=== PATIENT | female | born 1990 | race Caucasian/White ===

== ENCOUNTER 2022-03-18 15:00 | Outpatient (RCR) | payer MEDICAID, SELFPAY | END 2022-05-29 10:34 | disposition home or self-care (01) | PROVIDERS: PCP Obstetrics & Gynecology; Visit Provider Obstetrics & Gynecology | DX: R10.2 Pelvic and perineal pain (principal); R10.30 Lower abdominal pain, unspecified; R27.8 Other lack of coordination; Z51.89 Encounter for other specified aftercare | CPT/HCPCS: 97110; 97112; 97140; 97161 ==

== ENCOUNTER 2023-01-12 12:48 | Outpatient (CLI) | payer OTHER, MEDICAID, SELFPAY ==
--- NOTE | 2023-01-12 13:00 | CRLHL7_ITS ---
For Patients: As a result of the Century Cures Act, medical imaging exams and procedure reports are released immediately into your electronic medical record. You may view this report before your referring provider. If you have questions, please contact your health care provider. INDICATION: Bleeding/spotting COMPARISON: None. TECHNIQUE: Real-time shields-scale imaging of the pelvis was performed. FINDINGS: Intrauterine gestational sac is present measuring 1.4 cm, 6 weeks 2 days. pole is present measuring 0.49 cm, 6 weeks 1 day. No heart rate. Small subchorionic hemorrhage measuring 7 x 6 x 3 millimeters. Normal right ovary measuring 4.5 x 1.9 x 2.0 cm. Corpus luteal cyst left ovary measuring 1.2 x 0.9 x 1.2 cm. Left ovary measures 5.3 x 1.5 x 2.6 cm. IMPRESSION: Intrauterine pole measuring 6 weeks 1 day without heart tones. Follow up in 11-14 days recommended. Dictated by Augusto Lovell MD @ 01/15/2023 12:16:05 PM (Electronically Signed)
== END 2023-01-12 12:49 | disposition home or self-care (01) ==
LOC: US 12:52
PROVIDERS: Visit Provider Obstetrics & Gynecology
DX: O20.9 Hemorrhage in early pregnancy, unspecified (principal); Z3A.01 Less than 8 weeks gestation of pregnancy
CPT/HCPCS: 76817; 84702

== ENCOUNTER 2023-04-20 12:15 | Outpatient (CLI) | payer OTHER, MEDICAID, SELFPAY ==
--- NOTE | 2023-04-20 12:15 | US_ITS ---
Facility:?[facility] Patient ID:?[id number] Site Patient ID:?[id number]. Site :?1990 Study:?US-OB Pelvis TRANSVAGINAL-04/20/2023 12:54:30 PM Ordering Physician:?ALANNAH AGUSTIN Final Report: INDICATION: First trimester scan, establish dates. COMPARISON: None. TECHNIQUE: Real-time shields-scale imaging of the pelvis was performed. FINDINGS: Sonographic imaging demonstrates a single living intrauterine gestation. The embryo demonstrates a regular cardiac rate measuring 167 beats per minute. The embryo`s crown-rump length measurement of 4.3 cm corresponds to a gestational age of 11 weeks 1 day with a sonographic due date of 11/08/2023. There is a normal-appearing yolk sac. There are no gross abnormalities noted within the embryo at this early state of development. The gestational sac has a normal appearance. There is no evidence of a perigestational hemorrhage. The amount of fluid within the sac appears appropriate for gestational age. The cervix is closed. The myometrium appears normal. Normal left ovary. Corpus luteal cyst right ovary measuring 3.7 x 3.1 x 3.2 cm. There are no suspicious fluid collections noted in the cul-de-sac. IMPRESSION: Gestational age calculated at 11 weeks 1 day with a sonographic due date of 11/08/2023. Dictated by Augusto Lovell MD @ 04/20/2023 1:10:00 PM Signed by:?Augusto Lovell MD @04/20/2023 1:10:00 PM (Electronic Signature)
== END 2023-04-20 12:16 | disposition home or self-care (01) ==
LOC: US 12:16
PROVIDERS: Visit Provider Advanced Practice Midwife
DX: Z34.91 Encounter for supervision of normal pregnancy, unspecified, first trimester (principal); Z3A.11 11 weeks gestation of pregnancy
CPT/HCPCS: 76817; 86703; 86706; 86803; 86850; 86900; 86901; 87086; 87340

== ENCOUNTER 2023-04-20 14:21 | Outpatient (CLI) | payer OTHER, MEDICAID, SELFPAY | END 2023-04-20 14:22 | disposition home or self-care (01) | LOC: NFLDREF 04-22 08:38 | PROVIDERS: Visit Provider Advanced Practice Midwife | DX: Z34.91 Encounter for supervision of normal pregnancy, unspecified, first trimester (principal) | CPT/HCPCS: 86592; 86703; 86704; 86706; 86762; 86787; 86803; 86850; 86900; 86901; 87086; 87340 ==

== ENCOUNTER 2023-06-22 11:50 | Outpatient (CLI) | payer OTHER, MEDICAID, SELFPAY ==
--- NOTE | 2023-06-22 12:15 | US_ITS ---
Patient: ESTEPHANIA CARVER Facility:?[facility] Patient ID:?[id number] Site Patient ID:?[id number]. Site :?1990 Study:?US-OB Pelvis OB ANATOMY-06/22/2023 1:12:46 PM Ordering Physician:JOESPH GOLDBERG Final Report: OB ULTRASOUND CLINICAL HISTORY: anatomy scan. COMPARISON: 04/20/2023. LLOY by US: 11/08/2023. GA: 20 w, 1 d. FINDINGS: position: Vertex. Cervix: Visualized. Technique: Transabdominal. Length of closed cervix: 3.9 cm. Placenta/cord: Posterior. Left wall. Technique: Transvaginal. Placenta tip to internal OS: 3.6 cm. Umbilical Cord: 3-vessel cord. Amniotic Fluid: 4.3 cm SDP . SURVEY: Observed Structures Cerebellum: Yes. 2.1 cm; 20 w 6 d. Cisterna Magna: Yes. 4.0 mm. Nuchal Fold: Yes. 5.1 mm. Lateral Ventricle: Yes. 6.3 mm. CSP: Yes. Midline Falx: Yes. Choroid Plexus: Yes. Spine: Yes. Stomach: Yes. Abd Cord Insertion: Yes. Urinary Bladder: Yes. Kidneys: Yes. Diaphragm: Yes. Nose/lips: Yes. Orbital view: Yes. Profile: Yes. Upper Extremities: Yes. Lower Extremities: Yes. Hands: Yes. Feet: Yes. Four-Chamber Heart: Yes. LVOT: Yes. RVOT: Yes. 3VV: Yes. 3VTV: Yes. BPD: 4.6 cm. 19 w 5 d, 34%. HC: 17.8 cm. 20 w 2 d, 48%. AC: 15.8 cm. 21 w 0 d, 71%. FL: 3.1 cm. 19 w 5 d, 26%. FL/AC: 19.71%. HC/AC Ratio: 1.13. Heart rate: 150 beats per minute. age by this US: 20 w 2 d. LOLY by this US: 11/07/2023. EFW: 347.57 g. Weight: 12 oz. Percentile by LOLY: 57%. IMPRESSION: 1. Measurements are consistent with dates. 2. Placental cord insertion was not visible due to positioning. Otherwise, normal anatomic survey. Rey Triplett M.D. Body/Diagnostic Radiologist [email or web address] BING/shade D& Transcribed: 12:03 p.mLuis laguerre/Dictated by: Rey Triplett MD @ 06/23/2023 11:52:00 AM Signed by:?Rey Triplett MD @06/23/2023 12:11:40 PM (Electronic Signature)
== END 2023-06-22 11:51 | disposition home or self-care (01) ==
LOC: US 11:50
PROVIDERS: Visit Provider Physician Assistant
DX: Z34.92 Encounter for supervision of normal pregnancy, unspecified, second trimester (principal); Z3A.20 20 weeks gestation of pregnancy
CPT/HCPCS: 76805; 76817

== ENCOUNTER 2023-07-21 08:25 | Outpatient (CLI) | payer OTHER, MEDICAID, SELFPAY ==
--- NOTE | 2023-07-21 08:15 | CRLHL7_ITS ---
For Patients: As a result of the Century Cures Act, medical imaging exams and procedure reports are released immediately into your electronic medical record. You may view this report before your referring provider. If you have questions, please contact your health care provider. INDICATION: repeat exam for cord insertion site COMPARISON: 06.22.23 TECHNIQUE: Real time shields scale imaging of the fetus was performed. FINDINGS: Sonographic imaging demonstrates a single living intrauterine gestation. Fetus demonstrates a regular cardiac rate of 145 beats per minute. Fetus has a breech position. The placenta lies posterior. Amniotic fluid volume appears normal and there is a single deepest vertical pocket: 4.2 cm. Placental cord insertion located 4.0 cm from the placental edge. IMPRESSION: Placental cord insertion located 4.0 cm from the placental edge. Dictated by Augusto Lovell MD @ 07/21/2023 12:05:29 PM (Electronically Signed)
--- OUTSIDE RECORDS SUMMARY | 2023-07-21 08:28 | XMS_ITS | Referral Summary ---
Author Organization [facility] Address [address] [place] [address]. [place] [address] Care Team Providers Care Full Charge Bookkeeper Name Role Phone No Ref-Primary, Physician Primary Care Provider Allergies No known active allergies Medications Medication Sig Dispensed Refills Start Date End Date Status Vit-Fe Fumarate-FA (PNV PLUS MULTIVITAMIN) 27-1 MG TABS per tablet Take 1 tablet by mouth daily Active Vitamin D-Vitamin K (VITAMIN K2-VITAMIN D3 PO) Active Active Problems Problem Noted Date Diagnosed Date Previous delivery, antepartum condition or complication 08/28/2019 Social History Tobacco Use Types Packs/Day Years Used Date Smoking Tobacco: Never Smokeless Tobacco: Never Tobacco Cessation:Counseling Given: No Alcohol Use Standard Drinks/Week Comments Not Currently 0 (1 standard drink = 0.6 oz pur e alcohol) [place] Depression Scale Answer Date Recorded [place] Depression Score 0 09/07/2020 Last EPDS Self Harm Result Not on file 09/07 Adolescent Education Answer Date Record ed Getting School Help Needed Not on file 11/01 Sex and Gender Information Value Date Recorded Sex Assigned at Not on file Gender Identity Not on file Sexual Orientation Not on file Last Filed Vital Signs Vital Sign Reading Time Taken Comments Blood Pressure 110/70 11/14/2020 1:37 PM CDT Pulse 101 11/21/2019 2:39 PM CDT Temperature 36.7 ??C (98.1 ??F) 08/30/2019 8:31 AM CD T Respiratory Rate 16 08/30/2019 8:31 AM CDT Oxygen Saturation 100% 08/29/2019 4:13 PM CDT Inhaled Oxygen Concentration - - Weight 69.9 kg (154 lb) 11/14/2020 1:37 PM CDT Height 167.6 cm (5' 6) 11/14/2020 1:37 PM CDT Body Mass Index 24.86 11/14/2020 1:37 PM CDT Plan of Treatment Not on file Procedures Procedure Name Priority Date/Time Associated Diagnosis Comments HIV ANTIGEN ANTIBODY COMBO Routine 08/28/2020 11:56 AM CDT History of delivery, currently HEPATITIS C ANTIBODY Routine 08/28/2020 11:56 AM CDT History of delivery, currently GYNECOLOGIC CYTOLOGY Routine 08/28/2020 11:23 AM CDT Screening for cervical cancer from Last 3 Months or Most Recently Relevant to Health Maintenance Results * HIV Antigen Antibody Combo (08/28/2020 11:56 AM CDT) HIV Antigen Antibody Combo Nonreactive Nonreactive 08/29/2020 9:16 AM CDT [facility] Comment:HIV-1 p24 Ag & HIV-1 /HIV-2 Ab Not Detected Blood STRUCTURE OF LEFT UPPER LIMB / Unknown Venipuncture / Unknown 08/28/2020 11:56 AM CDT 08/28/2020 11:57 AM CDT Yasemin Warren APRN, CNM [place] B - BLOOD ORDERABLES [facility] Specialty Core Lab [address] [facility], [address] [place] [address], [place] [phone] * Hepatitis C antibody (08/28/2020 11:56 AM CDT) Hepatitis C Antibody Nonreactive Nonreactive 08/29/2020 9:16 AM CDT [facility] Blood STRUCTURE OF LEFT UPPER LIMB / Unknown Venipuncture / Unknown 08/28/2020 11:56 AM CDT 08/28/2020 11:57 AM CDT Narrative [facility] - 08/29/2020 9:16 AM CDT Assay performance characteristics have not been established for newborns, infants, and children. Yasemin PARIS B - BLOOD ORDERABLES Performing Organization Address City/[facility]/ZIP Co de Phone Number [facility] Specialty Core Lab [address] [facility], [address] [place] [address], [place] [phone] * Pap imaged thin layer screen reflex to HPV if ASCUS - recommend age 25 - 29 (08/28/2020 11:23 AM CDT) Interpretation Negative for Intraepithelial Lesion or Malignancy (NILM) 08/30/2020 11:59 AM CDT [facility] Specimen Adequacy Satisfactory for evaluation, endocervical/zee sformation zone component absent 08/30/2020 11:59 AM CDT [facility] Clinical Information 08/30/2020 11:59 AM CDT [facility] Reflex Testing Yes if ASCUS 08/31/19 11:59 AM CDT [facility] Previous Abnormal? No 08/30/2020 11:59 AM CDT [facility] Performing Labs The technical component of this testing was completed at [facility] 08/30/2020 11:59 AM CDT [facility] Brushing CERVIX UTERI STRUCTURE / Unknown 08/28/2020 11:23 AM CDT 08/28/2020 3:57 PM CDT Comment:Pap imaged thin laye r screen reflex to HPV if ASCUS - recommend age 25 - 29Answer REQUIRED pap questions below:LMP (date): Patient's last menstrual period was 06/29/2020.PAP SOURCE: Cervical - EndocervicalPREVIOUS PAP RESULTS: No results found for: PAPPERTINENT CLINICAL HISTORY: Yasemin PALACIO - BEAKER AP [facility] [address] [place] [address], [place] [phone] from Last 3 Months or Most Recently Relevant to Health Maintenance Care Teams Full Charge Bookkeeper Relationship Specialty Start Date End Date No Ref-Primary, Physician PCP - General 08/28/19
--- OUTSIDE RECORDS SUMMARY | 2023-07-21 08:28 | XMS_ITS | Clinical Summary ---
Author Organization [facility] Address [address] [place] [address]. [place] [address] Care Team Providers Care Food Checker Name Role Phone No Ref-Primary, Physician Primary Care Provider Allergies No known active allergies Medications Medication Sig Dispensed Refills Start Date End Date Status Vit-Fe Fumarate-FA (PNV PLUS MULTIVITAMIN) 27-1 MG TABS per tablet Take 1 tablet by mouth daily Active Vitamin D-Vitamin K (VITAMIN K2-VITAMIN D3 PO) Active Active Problems Problem Noted Date Diagnosed Date Previous delivery, antepartum condition or complication 08/28/2019 Family History Medical History Relation Comments Diabetes Father Relation Status Comments Father Alive Mother Alive Social History Tobacco Use Types Packs/Day Years Used Date Smoking Tobacco: Never Smokeless Tobacco: Never Tobacco Cessation:Counseling Given: No Alcohol Use Standard Drinks/Week Comments Not Currently 0 (1 standard drink = 0.6 oz pur e alcohol) [place] Depression Scale Answer Date Recorded [place] Depression Score 0 09/07/2020 Last EPDS Self [...] 11/14/2020 1:37 PM CDT Plan of Treatment Health Maintenance Due Date Last Done Comments ADVANCE CARE PLANNING 1990 ANNUAL REVIEW OF HM ORDERS 1992 HEPATITIS B IMMUNIZATION (1 of 3 - 19+ 3-dose series) 09/18/2011 DTAP/TDAP/TD IMMUNIZATION (1 - Tdap) 2017 YEARLY PREVENTIVE VISIT 08/28/2021 08/28/2020 COVID-19 Vaccine (1 - 2022-2 4 season) 2022 PHQ-2 (once per calendar year) 2023 PAP 08/29/2023 08/28/2020 INFLUENZA VACCINE (Season Ended) 2023 HEPATITIS C SCREENING Completed 08/28/2020 HIV SCREENING Completed 08/28/2020 HPV IMMUNIZATION Aged Out No longer e ligible based on patient's age to complete this topic IPV IMMUNIZATION Aged Out No longer e ligible based on patient's age to complete this topic MENINGITIS IMMUNIZATION Aged Out No l onger eligible based on patient's age to complete this topic Pneumococcal Vaccine: Pediat rics (0 to 5 Years) and At-Risk Patients (6 to 64 Years) Aged Out No longer eligi ble based on patient's age to complete this topic RSV MONOCLONAL ANTIBODY Aged Out No l onger eligible based on patient's age to complete this topic Procedures Procedure Name Priority Date/Time Associated Diagnosis [...] Combo Nonreactive Nonreactive 08/29/2020 9:[address] [facility] Comment:HIV-1 p24 Ag & HIV-1 /HIV-2 Ab Not Detected Blood STRUCTURE OF LEFT UPPER LIMB / Unknown Venipuncture / Unknown 08/28/2020 11:56 AM CDT 08/28/2020 11:57 AM CDT Yasemin Warren APRN CNLanre LA B - BLOOD ORDERABLES [facility] Specialty Core Lab [address] [facility], [address] [place] [address], [facility] [phone] * Hepatitis C antibody (08/28/2020 11:56 AM CDT) Hepatitis C Antibody Nonreactive Nonreactive 08/29/2020 9:[address] [facility] Blood STRUCTURE OF LEFT UPPER LIMB / Unknown Venipuncture / Unknown 08/28/2020 11:56 AM CDT 08/28/2020 11:[address] [facility] - 08/29/2020 9:16 AM CDT Assay performance characteristics have not been established for newborns, infants, and children. Yaesmin Warren APRN, CNM [place] B - BLOOD ORDERABLES Performing Organization Address City/[facility]/ZIP Co de Phone Number [facility] Special[facility] Core Lab [address] [facility], [address] [place] [address], [facility] [phone] * Pap imaged thin layer screen reflex to HPV if ASCUS - recommend age 25 - 29 (08/28/2020 11:23 AM CDT) Interpretation Negative for Intraepithelial Lesion or Malignancy (NILM) 08/30/2020 11:59 AM CDT [facility] Specimen Adequacy Satisfactory for evaluation, endocervical/zee sformation zone component absent 08/30/2020 11:59 AM CDT [facility] Clinical Information 08/30/2020 11:59 AM CDT [facility] Reflex Testing Yes if ASCUS 08/31/19 11:59 AM CDT [facility] Previous Abnormal? No 08/30/2020 11:59 AM CDT [facility] Performing Labs The technical component of this testing was completed at [facility] 08/30/2020 11:59 AM CDT [facility] Brushing CERVIX UTERI STRUCTURE / Unknown 08/28/2020 11:23 AM CDT 08/28/2020 3:57 PM CDT Comment:Pap imaged thin laye r screen reflex to HPV if ASCUS - recommend age 25 - 29Answer REQUIRED pap questions below:LMP (date): Patient's last menstrual period was 06/29/2020.PAP SOURCE: Cervical - EndocervicalPREVIOUS PAP RESULTS: No results found for: PAPPERTINENT CLINICAL HISTORY: Yasemin GARCIA [facility] [address] [place] [address], [facility] [phone] from Last 3 Months or Most Recently Relevant to Health Maintenance Care Teams Food Checker Relationship Specialty Start Date End Date No Ref-Primary, Physician PCP - General 08/28/19
== END 2023-07-21 08:26 | disposition home or self-care (01) ==
LOC: US 08:25
PROVIDERS: Visit Provider Advanced Practice Midwife
DX: Z34.90 Encounter for supervision of normal pregnancy, unspecified, unspecified trimester (principal)
CPT/HCPCS: 76816

== ENCOUNTER 2023-10-16 09:45 | Outpatient (CLI) | payer OTHER, MEDICAID, SELFPAY ==
--- OUTSIDE RECORDS SUMMARY | 2023-10-22 06:02 | XMS_ITS | Clinical Summary ---
Author Organization [facility] Address [address] [place] [address]. [place] [address] Care Team Providers Care Door Builder Name Role Phone No Ref-Primary, Physician Primary [...] drink = 0.6 oz pur e alcohol) [place] Depression Scale Answer Date Recorded [place] Depression Score 0 09/07/2020 Last EPDS Self [...] Tdap) 2017 YEARLY PREVENTIVE VISIT 08/28/2021 08/28/2020 PHQ-2 (once per calendar year) 2023 PAP 08/29/2023 08/28/2020 COVID-19 Vaccine (2022-2 4 season) 2023 INFLUENZA VACCINE (#1) 2023 HEPATITIS C SCREENING Completed 08/28/2020 HIV [...] Combo Nonreactive Nonreactive 08/29/2020 9:16 AM CDT [facility] Comment:HIV-1 p24 Ag & HIV-1 /HIV-2 Ab Not Detected Blood STRUCTURE OF LEFT UPPER LIMB / Unknown Venipuncture / Unknown 08/28/2020 11:56 AM CDT 08/28/2020 11:57 AM CDT Yasemin Warren APRN CNLanre [place] B - BLOOD ORDERABLES [facility] Specialty Core Lab [address] [facility], [address] [place] [address], [facility] [phone] * Hepatitis C antibody (08/28/2020 11:56 AM CDT) Hepatitis C Antibody Nonreactive Nonreactive 08/29/2020 9:16 AM CDT [facility] Blood STRUCTURE OF LEFT UPPER LIMB / Unknown Venipuncture / Unknown 08/28/2020 11:56 AM CDT 08/28/2020 11:57 AM CDT Narrative [facility] - 08/29/2020 9:16 AM CDT Assay performance characteristics have not been established for newborns, infants, and children. Yasemin Warren APRN, CNM [place] B - BLOOD ORDERABLES [facility] Specialty Core Lab [address] [facility], [address] [place] [address], [facility] [phone] * Pap imaged thin layer screen reflex to HPV if ASCUS - recommend age 25 - 29 (08/28/2020 11:23 AM CDT) Interpretation Negative for Intraepithelial Lesion or Malignancy (NILM) 08/30/2020 11:[address] [facility] Specimen Adequacy Satisfactory for evaluation, endocervical/zee sformation zone component absent 08/30/2020 11:[address] [facility] Clinical Information 08/30/2020 11:59 AM CDT [facility] Reflex Testing Yes if ASCUS 08/31/19 11:59 AM CDT [facility] Previous Abnormal? No 08/30/2020 11:[address] [facility] Performing Labs The technical component of this testing was completed at [facility] 08/30/2020 11:[address] [facility] Brushing CERVIX UTERI STRUCTURE / Unknown 08/28/2020 11:23 AM CDT 08/28/2020 3:57 PM CDT Comment:Pap imaged thin laye r screen reflex to HPV if ASCUS - recommend age 25 - 29Answer REQUIRED pap questions below:LMP (date): Patient's last menstrual period was 06/29/2020.PAP SOURCE: Cervical - EndocervicalPREVIOUS PAP RESULTS: No results found for: PAPPERTINENT CLINICAL HISTORY: Yasemin GARCIA [facility] [address] [place] [address], [facility] [phone] from Last 3 Months or Most Recently Relevant to Health Maintenance Care Teams Door Builder Relationship Specialty Start Date End Date No Ref-Primary, Physician PCP - General 08/28/19
--- OUTSIDE RECORDS SUMMARY | 2023-10-22 06:02 | XMS_ITS | Referral Summary ---
Author Organization [facility] Address [address] [place] [address]. [place] [address] Care Team Providers Care Diamond Saw Operator Name Role Phone No Ref-Primary, Physician Primary [...] drink = 0.6 oz pur e alcohol) [place] Depression Scale Answer Date Recorded [place] Depression Score 0 09/07/2020 Last EPDS Self [...] Combo Nonreactive Nonreactive 08/29/2020 9:16 AM CDT [facility] Comment:HIV-1 p24 Ag & HIV-1 /HIV-2 Ab Not Detected Blood STRUCTURE OF LEFT UPPER LIMB / Unknown Venipuncture / Unknown 08/28/2020 11:56 AM CDT 08/28/2020 11:57 AM CDT Yasemin Warren APRN, CNM [place] B - BLOOD ORDERABLES [facility] Specialty Core Lab [address] [facility], [address] [place] [address], [facility] [phone] * Hepatitis C antibody (08/28/2020 11:56 AM CDT) Hepatitis C Antibody Nonreactive Nonreactive 08/29/2020 9:16 AM CDT [facility] Blood STRUCTURE OF LEFT UPPER LIMB / Unknown Venipuncture / Unknown 08/28/2020 11:56 AM CDT 08/28/2020 11:57 AM CDT Narrative [facility] - 08/29/2020 9:16 AM CDT Assay performance characteristics have not been established for newborns, infants, and children. Yasemin [place] B - BLOOD ORDERABLES Performing Organization Address City/[facility]/ZIP Co de Phone Number [facility] Specialty Core Lab [address] [facility], [address] [place] [address], [facility] [phone] * Pap imaged thin layer screen reflex to HPV if ASCUS - recommend age 25 - 29 (08/28/2020 11:23 AM CDT) Interpretation Negative for Intraepithelial Lesion or Malignancy (NILM) 08/30/2020 11:59 AM CDT [facility] Specimen Adequacy Satisfactory for evaluation, endocervical/zee sformation zone component absent 08/30/2020 11:59 AM CDT [facility] Clinical Information 08/30/2020 11:59 AM CDT [facility] Reflex Testing Yes if ASCUS 08/31/19 11:59 AM CDT [facility] Previous Abnormal? No 08/30/2020 11:59 AM CDT [facility] Performing Labs The technical component of this testing was completed at [facility] 08/30/2020 11:59 AM CDT [facility] [...] CLINICAL HISTORY: Yasemin PALACIO - BEAKER AP [facility] [address] [place] [address], [facility] [phone] from Last 3 Months or Most Recently Relevant to Health Maintenance Care Teams Diamond Saw Operator Relationship Specialty Start Date End Date No Ref-Primary, Physician PCP - General 08/28/19
== END 2023-10-16 09:46 | disposition home or self-care (01) ==
LOC: NFLDREF 10-22 06:01
PROVIDERS: Visit Provider Obstetrics & Gynecology
DX: Z34.93 Encounter for supervision of normal pregnancy, unspecified, third trimester (principal); Z3A.36 36 weeks gestation of pregnancy
CPT/HCPCS: 82728

== ENCOUNTER 2023-10-26 10:47 | Outpatient (RCR) | payer OTHER, MEDICAID, SELFPAY ==
[2023-10-26 11:01] VITALS: BP 109/70; PULSE 101; RESP 16; TEMP 37.2; O2SAT 100
--- NOTE | 2023-10-26 11:57 | URNOTE ---
Prior auth is not required fro [employer] ([id number]) per [employer].
[2023-10-26] MEDS: SODIUM CHLORIDE 0.9 % (FLUSH) 10 ML SYRINGE IVF (12:00)
[2023-10-26] MEDS: 0.9 % SODIUM CHLORIDE 250 ml IV (12:00)
[2023-10-26] MEDS: IRON DEXTRAN COMPLEX 25 MG in 0.9 % SODIUM CHLORIDE 100 ml 100 ML 400 MG IVPB (12:13)
[2023-10-26 12:34] VITALS: BP 96/60; PULSE 92; RESP 16; O2SAT 98
[2023-10-26] MEDS: IRON DEXTRAN COMPLEX 975 MG in 0.9 % SODIUM CHLORIDE 250 ml 250 ML 270 MG IVPB (13:23)
[2023-10-26 14:30] VITALS: BP 115/70; PULSE 94; RESP 16; TEMP 37.1; O2SAT 97
== END 2024-04-23 23:59 | disposition home or self-care (01) ==
LOC: CCIC 10:47
PROVIDERS: Visit Provider Clinical Nurse Specialist
DX: O99.019 Anemia complicating pregnancy, unspecified trimester (principal); D50.9 Iron deficiency anemia, unspecified
CPT/HCPCS: 96365; 96376; J1750; J7050

== ENCOUNTER 2023-11-05 05:47 | Inpatient (IN) | payer OTHER, MEDICAID, SELFPAY ==
[2023-11-05] VITALS (30 sets, daily range): BP systolic 99–119; BP diastolic 57–79; PULSE 70–97; RESP 16; TEMP 36.3–37.1; O2SAT 96–100; BMI 30.9
--- OUTSIDE RECORDS SUMMARY | 2023-11-05 05:50 | XMS_ITS | Clinical Summary ---
Author Organization [place] Address [address] [place] [address]. [place] [address] Care Team Providers Care Reaming Press Operator Name Role Phone No Ref-Primary, Physician [...] drink = 0.6 oz pur e alcohol) Jupiter Depression Scale Answer Date Recorded Jupiter Depression Score 0 09/07/2020 Last EPDS Self [...] year) 2023 PAP 08/29/2023 08/28/2020 COVID-19 Vaccine ( - 2023-2 5 season) 2023 INFLUENZA VACCINE (#1) 2023 HEPATITIS [...] APRN CNLanre LA B - BLOOD ORDERABLES [facility] Specialty Core Lab [address] [facility], [address] [place] [address], [facility] [phone] * Hepatitis C antibody (08/28/2020 11:56 AM CDT) Hepatitis C Antibody Nonreactive Nonreactive 08/29/2020 9:16 AM CDT [facility] Blood STRUCTURE OF LEFT UPPER LIMB / Unknown Venipuncture / Unknown 08/28/2020 11:56 AM CDT 08/28/2020 11:57 AM CDT Narrative [facility] - 08/29/2020 9:16 AM CDT Assay performance characteristics have not been established for newborns, infants, and children. Yasemin Warren APRN, CNM LA B - BLOOD ORDERABLES [facility] Specialty Core Lab [address] [facility], [address] [place] [address], [facility] [phone] * Pap imaged thin layer screen reflex to HPV if ASCUS - recommend age 25 - 29 (08/28/2020 11:23 AM CDT) Interpretation Negative for Intraepithelial Lesion or Malignancy (NILM) 08/30/2020 11:[address] [facility] Specimen Adequacy Satisfactory for evaluation, endocervical/zee sformation zone component absent 08/30/2020 11:[address] [facility] Clinical Information 08/30/2020 11:59 AM CDT [facility] Reflex Testing Yes if ASCUS 08/31/19 11:59 AM CDT [facility] Previous Abnormal? No 08/30/2020 11:[address] [facility] Performing Labs The technical component of this testing was completed at [facility] 08/30/2020 11:[address] [facility] Brushing CERVIX UTERI STRUCTURE / Unknown 08/28/2020 11:23 AM CDT 08/28/2020 3:57 PM CDT Comment:Pap imaged thin laye r screen reflex to HPV if ASCUS - recommend age 25 - 29Answer REQUIRED pap questions below:LMP (date): Patient's last menstrual period was 06/29/2020.PAP SOURCE: Cervical - EndocervicalPREVIOUS PAP RESULTS: No results found for: PAPPERTINENT CLINICAL HISTORY: Yasemin GARCIA [facility] [address] [place] [address], [facility] [phone] from Last 3 Months or Most Recently Relevant to Health Maintenance Care Teams Reaming Press Operator Relationship Specialty Start Date End Date No Ref-Primary, Physician PCP - General 08/28/19
--- OUTSIDE RECORDS SUMMARY | 2023-11-05 05:50 | XMS_ITS | Referral Summary ---
Author Organization [place] Address [address] [place] [address]. [place] [address] Care Team Providers Care Licensing Engineer Name Role Phone No Ref-Primary, Physician Primary [...] drink = 0.6 oz pur e alcohol) Vanderbilt Depression Scale Answer Date Recorded Vanderbilt Depression Score 0 09/07/2020 Last EPDS Self [...] Nonreactive Nonreactive 08/29/2020 9:[address] [facility] Comment:HIV-1 p24 Ag & HIV-1 /HIV-2 Ab Not Detected Blood STRUCTURE OF LEFT UPPER LIMB / Unknown Venipuncture / Unknown 08/28/2020 11:56 AM CDT 08/28/2020 11:57 AM CDT Yasemin Warren APRN, CNM LA B - BLOOD ORDERABLES [facility] Special[facility] Core Lab [address] [facility] [place] [address], [facility] [[email or web address]] [phone] * Hepatitis C antibody (08/28/2020 11:56 AM CDT) Hepatitis C Antibody Nonreactive Nonreactive 08/29/2020 9:[address] [facility] Blood STRUCTURE OF LEFT UPPER LIMB / Unknown Venipuncture / Unknown 08/28/2020 11:56 AM CDT 08/28/2020 11:57 AM CDT Narrative [facility] - 08/29/2020 9:16 AM CDT Assay performance characteristics have not been established for newborns, infants, and children. Yasemin PARIS B - BLOOD ORDERABLES Performing Organization Address City/[facility]/ZIP Co de Phone Number [facility] Specialty Core Lab [address] [facility], [address] [place] [address], [facility] [[email or web address]] [phone] * Pap imaged thin layer screen reflex to HPV if ASCUS - recommend age 25 - 29 (08/28/2020 11:23 AM CDT) Interpretation Negative for Intraepithelial Lesion or Malignancy (NILM) 08/30/2020 11:[address] [facility] Specimen Adequacy Satisfactory for evaluation, endocervical/zee sformation zone component absent 08/30/2020 11:[address] [facility] Clinical Information 08/30/2020 11:[address] [facility] Reflex Testing Yes if ASCUS 08/31/19 11:[address] [facility] Previous Abnormal? No 08/30/2020 11:[address] [facility] Performing Labs The technical component of this testing was completed at [facility] 08/30/2020 11:[address] [facility] Brushing CERVIX UTERI STRUCTURE / Unknown 08/28/2020 11:23 AM CDT 08/28/2020 3:57 PM CDT Comment:Pap imaged thin laye r screen reflex to HPV if ASCUS - recommend age 25 - 29Answer REQUIRED pap questions below:LMP (date): Patient's last menstrual period was 06/29/2020.PAP SOURCE: Cervical - EndocervicalPREVIOUS PAP RESULTS: No results found for: PAPPERTINENT CLINICAL HISTORY: Yasemin PALACIO - BEAKER AP [facility] [address] [place] [address], [facility] [[email or web address]] [phone] from Last 3 Months or Most Recently Relevant to Health Maintenance Care Teams Licensing Engineer Relationship Specialty Start Date End Date No Ref-Primary, Physician PCP - General 08/28/19
[2023-11-05] MEDS: LACTATED RINGERS 1000 ML 1,000 ML 999 ML IV (06:39)
[2023-11-05 06:55] LABS: Hemoglobin* 10.7 gm/dL (12.0-16.0)
--- NOTE | 2023-11-05 07:09 | W.PM.H&PU ---
History & Physical Update History & Physical Update H&P Reviewed and patient assessed: No changes noted
--- NOTE | 2023-11-05 07:09 | PM.PROC ---
Procedure Note Time Seen by Provider: : Date Seen: 11/05/23 Date of procedure: 11/05/23 Will [facility] bill your pro fee for this procedure?: Yes Procedure: Preoperative diagnosis: 33-year-old 3 para 2001 at 39 and 3/7 weeks admitted for a scheduled repeat low transverse section. Postoperative diagnosis: Same Procedure: Repeat low-transverse section. Anesthesia: Spinal Surgeon: Gail oGodwin MD Continuous Drier Helper: ENDY Wang Quantitative blood loss: 660 mL IV Fluid: 1500 mL Urine output: 50 mL Drain(s): Lane to gravity. Specimen: none Findings: A live male was delivered from the direct OA position at 7:59 a.m.. Apgars were 8 at 1 min and 9 at 5 min,respectively. Infant weight: at 8 lb 3 oz. Nuchal cord(s): no. The placenta was delivered spontaneously and complete at 8:01 a.m.. Amniotic fluid: clear. Normal uterus, fallopian tubes and ovaries were noted. Other findings: none Procedure: Rashida was taken to the OR where spinal anesthetic was found be adequate. A Lane catheter was placed. The patient was then placed in the dorsal supine position with a leftward tilt. She was then prepped and draped in a normal sterile manner. A Pfannenstiel skin incision was made and carried through sharply to the underlying layer of fascia. Fascia was incised in the midline and this incision carried laterally with Baron scissors. The superior aspect of fascial incision was grasped with Jaziel clamps, tented up, and the rectus muscles dissected off with a combination of blunt and sharp dissection. The inferior aspect of the fascial incision was not dissected off the rectus muscles. The rectus muscles were in the midline. The peritoneum was entered bluntly. This opening was extended in layers using a Baron scissors. An Gregory-O self-retaining retractor was placed. A bladder flap , was created with Metzenbaum scissors due to thin adhesions of the bladder to the anterior wall of the uterus. There were otherwise minimal adhesions. Uterus was incised in a low transverse manner in the midline. This incision carried laterally with blunt pressure on the inferior and superior aspects of the uterine incision. The amniotic sac was ruptured. The 's [breech, head and body] were delivered atraumatically. The infant was shown to the patient and her support person. The umbilical was clamped and cut after a 30 second delay. The infant was then handed to waiting Nursing staff. The placenta was delivered spontaneously. The uterus was cleared of clots and debris. The uterine incision was re-approximated with the uterus in vivo. The 1st layer using 0-Vicryl in a running, locked manner. The 2nd layer using 0-Monocryl in a running, vertical, imbricating layer. Additional sutures needed for hemostasis: yes: 4 sutures of her for 2-0 chromic in a [id number] manner. Excellent hemostasis was confirmed. The Gregory retractor was removed. The rectus muscles were not reapproximated. The rectus muscles were then closely inspected to verify hemostasis. Hemostasis was obtained with bipolar cautery. The fascia was then reapproximated using 0-Maxon loop in a running manner. The subcutaneous tissue was then irrigated with saline and hemostasis obtained with bipolar cautery. The subcutaneous tissue was reapproximated using 3-0 plain gut interrupted sutures. The skin was reapproximated using 4-0 Monocryl in a running subcuticular manner. Exophin skin adhesive and a Mepiplex dressing were applied. The patient tolerated this procedure well. Sponge, lap and instrument counts were correct x2 active to the procedure. Patient was taken to the recovery area in stable condition. The patient received 2 g of IV Ancef prior to skin incision.
[2023-11-05] MEDS: CEFAZOLIN 2 GM INJ IVP (07:45)
--- NOTE | 2023-11-05 07:48 | SUR.OPER ---
PATIENT QUESTIONS ANSWERED SATISFACTORILY PREOPERATIVELY. PATIENT AMBULATED TO OR #5. Patient positioned supine on OR #5 bed. Final approval of positioning by surgeon.
--- NOTE | 2023-11-05 08:08 | W.ANESCHARGE ---
Anesthesia Charges Start Date/Time Anesthesia Start Date: 11/05/23 Anesthesia Start Time: 07:24 Stop Date/Time Anesthesia Stop Date: 11/05/23 Anesthesia Stop Time: 08:57
[2023-11-05] MEDS: KETOROLAC 30 MG/ML inj IVP ×3 (08:24→22:41)
--- NOTE | 2023-11-05 08:31 | SUR.OPER ---
SURGEON DECLINES OFFER TO SEND PLACENTA TO PATHOLOGY.
--- NOTE | 2023-11-05 09:03 | W.ANESCHARGE ---
Anesthesia Charges Start Date/Time Anesthesia Start Date: 11/05/23 Anesthesia Start Time: 07:24 Stop Date/Time Anesthesia Stop Date: 11/05/23 Anesthesia Stop Time: 08:57
--- NOTE | 2023-11-05 09:04 | P.NB_ITS ---
Nerve Block Nerve Block Time Seen by Provider: 08:45 Date Seen: 11/05/23 Type of block requested by surgeon for post-operative analgesia: TAP Side: bilateral Time out performed: Yes Verification of patient name: Yes Verification of date of : Yes Site marking: site marked Name of person performing procedure: Ru Vizcaino Assistants, if any: ANNE Ball Continuous monitoring Was continuous monitoring of O2 sat, B/P, manager cardiac cath, recorded every 15 minutes?: Yes Procedure Checklist: sterile prep, needles and gloves Ultrasound guided. Images saved: Yes Medications given in 5ml increments after negative aspiration: Marcaine %: 0.25 mL: 30 Needle gauge: 21 and Exparel mL: 10 Needle gauge: 21 Patient tolerated procedure well: Yes Additional comments: Injected in 5mL increments after negative aspiration Block Charges Block Charge (with Pro Fee): TAP Bilateral Use of Ultrasound Machine for Block: Yes- US Guidance/pain block
[2023-11-05] MEDS: SODIUM CHLORIDE 0.9 % (FLUSH) 10 ML SYRINGE IVF ×2 (14:37→22:42)
[2023-11-06] VITALS (12 sets, daily range): BP systolic 103–118; BP diastolic 65–74; PULSE 80–105; RESP 16–18; TEMP 36.6–37; O2SAT 97–98
[2023-11-06] MEDS: SODIUM CHLORIDE 0.9 % (FLUSH) 10 ML SYRINGE IVF ×2 (04:35→17:11)
[2023-11-06] MEDS: KETOROLAC 30 MG/ML inj IVP ×3 (04:35→17:10)
[2023-11-06 06:58] LABS: Hemoglobin* 8.8 gm/dL (12.0-16.0)
--- NOTE | 2023-11-06 07:24 | PM.OBPNVD1 ---
OB - PN:Subj Subjective Date Seen: 11/06/23 Narrative: The patient feels well.? The pain is well controlled with current medications.? She has no new complaints.? Urinary output is adequate and she is voiding without difficulty.? Has a good appetite, is tolerating a general diet, is passing flatus, and has not had a bowel movement.? Has scant amount of rubra lochia.? She is ambulating well. She is and reports it is going well.? OB - PN: Obj Exam Physical Exam: Vital signs: Temp Pulse Resp BP Pulse Ox O2 Del Method 98 F 80 16 104/69 97 Room Air 11/06/23 04:33 11/06/23 04:11/06/23 05:36 11/06/23 04:11/06/23 04:11/06/23 04:33 Narrative: GENERAL APPEARANCE:? normal affect, alert, no distress MOOD:? appropriate CHEST:? clear to auscultation HEART:? regular rate and rhythm ABDOMEN:? soft, non-tender the uterine fundus is At Umbilicus, Midline and is appropriate for the stage of recovery. EXTREMITIES:? normal and minimal edema Incision: surgical dressing in place, no surrounding erythema, abnormal induration or discharge OB - PN: Obj Data Labs Labs: Laboratory Results - last 24 hr 11/05/23 11/06/23 06:31 06:46 Hgb 8.8 L Blood Type A Positive Antibody Screen NEGATIVE OB - PN: A/P Delivery Assessment and Plan (1) Status post repeat low transverse section: Problem details: 3rd , 3rd boy. Apgars 8/9. Weight 8#3oz. José. Other boys: Charlie, Deacon Status: Acute Plan , may see if needed? Routine care Hgb 8.8. Iron supplement ordered orally every other day? Labs stable with trending? Plan day: 1 Plan: routine care
[2023-11-06] MEDS: IBUPROFEN 600 MG TABLET PO (23:25)
[2023-11-07 01:35] LABS: Rapid Plasma Reagin (RPR) Non Reactive (Non Reactive)
[2023-11-07] MEDS: IBUPROFEN 600 MG TABLET PO (06:04)
[2023-11-07 08:05] VITALS: BP 115/77; PULSE 92; RESP 18; TEMP 37; O2SAT 99
--- NOTE | 2023-11-07 08:18 | P.DS_ITS ---
DS: Providers Provider Time Seen by Provider: 08:18 Date Seen: 11/07/23 Date of admission: 11/05/23 05:47 Primary care physician: Not a Local Provider Admitting Clinician: Gail Goodwin MD Attending Physician on discharge: Gail Goodwin MD Date of Discharge: 11/07/23 DS: Diagnosis Discharge Diagnosis (1) Status post repeat low transverse section: Status: Acute Problem details: 3rd , 3rd boy. Apgars 8/9. Weight 8#3oz. José. Other boys: Deacon Guerra Exam Narrative: Exam Narrative: General: Pleasant, , well groomed woman in no acute distress. Signs: Included in her electronic medical record. Heart: Regular rate and rhythm without gallop, rub or murmur. Chest: Clear to auscultation bilaterally. Abdomen: Soft, nontender, nondistended with normal bowel sounds. Fundus firm at 1 cm below the umbilicus in the midline. Incision: Clean, dry and intact with sutures and skin adhesive gel. Extremities: No edema or pain Const: Vital Signs, click to edit/add: Vital Signs - 24 hr 11/06/23 08:34 11/06/23 15:16 11/06/23 23:21 Temperature 97.9 F 98.4 F 98.6 F Pulse Rate [Right Pulse Oximeter] 81 95 91 Respiratory Rate 16 18 18 Blood Pressure [Ri ght Arm] 114/74 103/68 107/65 Pulse Oximetry 97 98 97 Oxygen Delivery Me thod Room Air Room Air Room Air OB - DS: Summary Hospital Course Hospital Course: The patient is a 33 year old G 4 P now 3 at 39 and 4/7 weeks gestation that was admitted to the Center on 11/05/23 for a scheduled repeat low-transverse . She had an uncomplicated delivery. She delivered a viable male . She is breast feeding. the patient has done well. Peripartum Data Infant delivery method: Repeat Section Procedures: Procedures Operation Date: 11/05/23 07:15 Actual Procedure Side Surgeon p Repeat Not Applicable Gail Goodwin MD complications: none Leslie Infant Gender: Male Status at Discharge Functional status at discharge: independent ambulation Overall status at discharge: patient is progressing back to baseline Time Spent with Patient Time attestation: Total time spent providing and/or coordinating discharge services: Discharge Plan Discharge Disposition: Home, Self-Care Date of Admission: 11/05/23 05:47 Attending Provider on Discharge: Gail Goodwin Primary Care Provider: Provider,Not a Local Condition: Stable Anticipated Discharge Date/Time: 11/07/23 11:00 Discharge Medications: New docusate sodium 100 mg Capsule 100 mg PO BID PRNQty: 100 0RF ibuprofen 600 mg Tablet 600 mg PO Q6H PRN (Reason: Pain) Qty: 30 0RF oxycodone 5 mg Tablet 5 - 10 mg PO Q4H PRN (Reason: Pain) Qty: 21 0RF Continued PNV 119-iron fum-folic acid 29 mg iron- 1 mg tablet 1 tab PO DAILY Discharge Orders: Discharge Order (Routine); Ordered 11/07/23 Ordered By: Gail Goodwin Patient Education: (DC) Additional Instructions: Discharge instructions were reviewed with the patient including signs and symptoms of infection and home going medications Lifting Restrictions: 20 pounds for 6 weeks No not submerge incision under water X 2 weeks? Nothing vaginally for 6 weeks: no tampons or intercourse Do not drive while taking narcotic pain medication(s) Off Work or School for a minimum of 8 weeks Symptoms to report to doctor: * Bleeding that saturates more than one pad per hour * Passing clots larger than the size of a golf ball * Pain not relieved by prescribed medication * Fever above 100.4 degrees Fahrenheit * A foul vaginal odor * Difficulty in emotions, mood, and functions * Thoughts of hurting yourself and/or * Painful, reddened area in your breast * Any drainage, redness, or tenderness in your IV/epidural site * Severe headache that doesn't improve after taking medications * Changes in vision, including temporary loss of vision, blurred vision, and/or light sensitivity * Upper abdominal pain (usually under ribs on the right side) * Decrease in urination or painful, frequent urinating * Chest pain * Shortness of breath * Tenderness or pain with redness and/swelling in the calf(s) of your leg Optional 2-week visit: incision check, discuss feeding concerns, review control options and screen for anxiety/depression. 6-week visit for an annual exam. consultation services are available to all mothers and babies for the first year after delivery.? To make an appointment, please call [phone]. Follow Up Appointments: Provider,Not a Local [Primary Care Provider] - Forms: Smart Pipe Info Instructions
== END 2023-11-07 11:05 | disposition home or self-care (01) | DRG 788 ==
PROVIDERS: Admitting Provider Obstetrics & Gynecology; Visit Provider Obstetrics & Gynecology
PROC: 10D00Z1 Extraction of Products of Conception, Low, Open Approach (ICD-10-PCS; CPT 59514; principal; 2023-11-05 07:15)
DX: O34.211 Maternal care for low transverse scar from previous cesarean delivery (principal); Z3A.39 39 weeks gestation of pregnancy; Z37.0 Single live birth; G89.18 Other acute postprocedural pain; O99.02 Anemia complicating childbirth; D64.9 Anemia, unspecified; Z86.59 Personal history of other mental and behavioral disorders
CPT/HCPCS: 01961; 36415; 64488; 76942; 85018; 86592; 86850; 86900; 86901; A9270; C9290; J0665; J0690; J1100; J1885; J2274; J2371; J2405; J2590; J7120

== ENCOUNTER 2024-04-14 13:56 | Outpatient (CLI) | payer OTHER, MEDICAID, SELFPAY | END 2024-04-14 13:57 | disposition home or self-care (01) | LOC: NFLDREF 13:57 | PROVIDERS: Visit Provider Obstetrics & Gynecology | DX: D64.9 Anemia, unspecified (principal); F53.0 Postpartum depression | CPT/HCPCS: 84443 ==